=== PATIENT | female | born 1960 | race Caucasian/White ===

== ENCOUNTER → 2016-12-30 | Outpatient (CLI) | payer BC ==
[~2016-12-30] MED LIST: ASPIRIN325 M1 PO; ATORVASTATIN CA40 MG PO; BENICAR HCT 20-1 TA1 PO; NIASPAN1000 M1
--- NOTE | ~2016-12-30 | MY11 ---
[facility] A Service of [facility] RADIOLOGY TEXT RESULTS PATIENT: CY HERNDON LOCATION: [facility] : 56 UNIT #: [id number] AGE: [address]: Darion Gaffney MD SEX: F ORDER DR: [id number] [facility]. [place], [place] [address] [id number] O MR#: [id number] Acc #: [id number] NAME: CY HERNDON : 1960 SEX: F STUDY DATE/TIME: 12/30/2016 8:04 UNIT: [facility] ROOM: STUDY DESCRIPTION: MY Mammogram Screening Dig Teodoro Attending Physician: Darion Gaffney M.D. Referring Physician: Darion Gaffney M.D. Ordering Physician: Darion Gaffney M.D. Primary Care Physician: Darion Gaffney M.D. MEDICAL IMAGING REPORT This report is preliminary unless electronic signature is present EXAM Digital screening mammogram, 12/30/2016 HISTORY 56-year-old woman positive family history, grandmother postmenopausal. Annual screening. COMPARISON Mammograms date to 05/12/2010 with most recent comparison 12/29/2015. FINDINGS Digital imaging of each breast was completed utilizing a two-view examination of each breast in craniocaudal and mediolateral-oblique projections. Review and interpretation of digital mammograms include a second review in conjunction with FDA-approved CAD device. There is a normal parenchymal presentation bilaterally consistent with the patient's age. There are no breast masses imaged and no parenchymal asymmetry is visualized. There are no suspicious microcalcifications and I see no focal architectural disturbance. IMPRESSION Negative screening digital mammogram. One-year followup recommended. Patients over the age of 40 are entered into a reminder system with target due date for the next mammogram. A result letter will also be sent to the patient. BIRADS: 1 Negative Dictated by... Shon Chris M.D. THIS IS AN ELECTRONICALLY VERIFIED REPORT [facility] A Service of [facility] RADIOLOGY TEXT RESULTS PATIENT: CY HERNDON LOCATION: [facility] : 56 UNIT #: [id number] AGE: [address]: Darion Gaffney MD SEX: F ORDER DR: Shon Chris M.D. at 12/30/2016 2:29 PM [place] TD: 12/30/2016 13:10 JOB #: [id number] MEDICAL IMAGING REPORT COPY
== END | disposition home or self-care (01) ==
LOC: CWCC 07:24
DX: Z12.31 Encounter for screening mammogram for malignant neoplasm of breast (principal); Z80.3 Family history of malignant neoplasm of breast
CPT/HCPCS: G0202